=== PATIENT | male | born 1970 | race African-American/Black ===

== ENCOUNTER 2019-02-14 09:18 | Emergency (ER) | payer OTHER ==
[2019-02-14 09:34] VITALS: BP 145/94; PULSE 90; TEMP 97.6; BMI 28.7
--- NOTE | 2019-02-14 09:42 | PDOC ---
History of Present Illness - General Chief Complaint: Nausea Stated Complaint: UPSET STOMACH Time Seen by Provider: 02/14/19 09:20 - History of Present Illness Initial Comments: Mr. Power is a 48 y/o male with PMH significant for HTN presenting today with "feverish feeling" which he describes as feeling "unwell, loss of appetite." He is from [facility] and flew to [facility] before arriving here yesterday. Reports feeling chills last night. Reports nausea without vomiting. Denies diarrhea or blood in the stool. Denies fever. Denies headache/dizziness/chest pain/ shortness of breath. Denies leg swelling or leg pain. Past History - Past Medical History Allergies/Adverse Reactions: Allergies Allergy/AdvReac Type Severity Reaction Status Date / Time No Known Allergies Allergy Verified 02/14/19 09:26 Home Medications: Ambulatory Orders Acetaminophen [Mapap] 500 mg PO ONCE 02/14/19 Amlodipine/Valsartan/Hcthiazid [Exforge Hct 10-160-12.5 mg Tab] 1 each PO DAILY 02/14/19 COPD: No HTN: Yes - Psycho Social/Smoking Cessation Hx Smoking History: Never smoked Hx Alcohol Use: No Drug/Substance Use Hx: No Review of Systems - Review of Systems Comments:: GENERAL/CONSTITUTIONAL: No fever. Reports chills. No weakness. Reports decreased appetite. HEAD, EYES, EARS, NOSE AND THROAT: No change in vision. No change in hearing. No sore throat._ CARDIOVASCULAR: No chest pain or shortness of breath_ RESPIRATORY: Denies cough, hemoptysis_ GASTROINTESTINAL: Reports nausea. No vomiting, diarrhea or constipation._ GENITOURINARY: No dysuria, frequency, or change in urination._ MUSCULOSKELETAL: No joint or muscle swelling or pain. No neck or back pain._ SKIN: No rash_ NEUROLOGIC: No headache, vertigo, loss of consciousness, or change in strength/ sensation._ ENDOCRINE: No increased thirst. No abnormal weight change_ ALLERGIC/IMMUNOLOGIC: No hives or skin allergy._ *Physical Exam - Vital Signs Last Vital Signs Temp Pulse Resp BP Pulse Ox 97.6 F 90 15 145/94 100 02/14/19 09:19 02/14/19 09:19 02/14/19 09:19 02/14/19 09:19 02/14/19 09:19 - Physical Exam Comments: GENERAL: Awake, alert, and oriented to person/place/time, in no acute distress_ HEAD: No signs of trauma, normocephalic, atraumatic _ EYES: PERRLA, EOMI, sclera anicteric, conjunctiva clear_ ENT: Hearing grossly normal, nares patent, oropharynx clear without exudates. No uvular deviation. Moist mucosa_ NECK: Normal ROM, supple, no lymphadenopathy, JVD, or masses_ LUNGS: No distress, speaks in full sentences, clear to auscultation bilaterally _ HEART: Regular rate and rhythm, normal S1 and S2, no murmurs appreciated, peripheral pulses normal and equal bilaterally._ ABDOMEN: Soft, nontender. No guarding, no rebound. No masses_ EXTREMITIES: Normal inspection, Normal range of motion, no edema. No clubbing or cyanosis_ NEUROLOGICAL: Cranial nerves II through XII grossly intact. Normal speech, normal gait, no focal sensorimotor deficits _ SKIN: Warm, Dry, normal turgor, no rashes or lesions noted_ ED Treatment Course - LABORATORY CBC & Chemistry Diagram: 02/14/19 10:15 02/14/19 10:15 - RADIOLOGY Radiology Studies Ordered: Category Date Time Status CHEST PA & LAT [RAD] Stat Radiology 02/14/19 09:35 Ordered Medical Decision Making - Medical Decision Making 02/14/19 09:41 48M with hx of HTN, visiting from [facility] via [facility], presenting with nausea and decreased appetite. No other symptoms. -CBC, CMP, lipase -EKG -CXR -1L NS 02/14/19 10:44 EKG shows NSR, 86 bpm, left axis deviation, no ST elevation/depression, QTc 423. CXR does not appear to show aucte intrathoracic process. 02/14/19 1200 Labs reviewed and wnl. 02/14/19 1300 Patient reassessed. Reports improvement after IV fluids. Plan to d/c home with instructions to hydrate and sleep well. Return if worse. Discharge - Discharge Information Problems reviewed: Yes Clinical Impression/Diagnosis: Nausea Condition: Good Disposition: HOME - Admission No - Follow up/Referral - Patient Discharge Instructions Additional Instructions: Please continue to hydrate well with plenty of water. If you experience any new, worsening, or concerning symptoms, including chest pain, shortness of breath, severe abdominal pain, fever, severe diarrhea, or any other concerns, please return to the emergency department. - Post Discharge Activity
--- NOTE | 2019-02-14 09:51 | PDOC ---
Attending Attestation - Resident Resident Name: Evens Bunch - ED Attending Attestation I have performed the following: I have examined & evaluated the patient, The case was reviewed & discussed with the resident, I agree w/resident's findings & plan, Exceptions are as noted - HPI HPI: 02/14/19 09:49 48-year-old female here today from [facility] where he resides just recently [place] the [place]. States he had a stop over in [facility] ,[place]. still complaining of feeling nauseous and generalized fatigue and feverish. Denies any vomiting no diarrhea no rash no known sick contacts no weight loss no other current complaints. No cough no shortness of breath. 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 [facility] no diarrhea he had one episode of loose stool in the plane but since then has not had any more no rash no body aches no weight loss no night sweats 02/14/19 12:13 - Physicial Exam PE: 02/14/19 12:14 Patient is awake alert no acute distress lungs are clear bilaterally heart is regular without murmurs rubs or gallops abdomen is soft and nontender extremities are warm well perfused there is no peripheral edema no calf tenderness skin is warm and dry no appreciated rash neurologically awake alert and oriented x3 - Medical Decision Making 02/14/19 12:15 Differential includes GI upset from flying, viral gastritis, viral syndrome, other infectious disease less likely as the patient is currently afebrile has not taken any Motrin or Tylenol since the night previous. We will send basic labs CBC CMP including LFTs and lipase due to his mild decrease in appetite. Chest x-ray to rule out any other infectious disease such as pneumonia or other pathology. Chest x-ray is normal EKG is unremarkable basic labs including lipase are normal. Patient feels improved with IV hydration will discharge home he resides with his friend here locally. Plans to return to [facility] at the end of this month told to return to the ED for fever vomiting diarrhea rash or any other concerns
[2019-02-14] MEDS ORDERED: SODIUM CHLORIDE 0.9% 500 ML INFUS.BAG IV ONE (10:24)
[2019-02-14 10:33] LABS: BASO % 0.6 % (0-2.0); EOS % 0.3 % (0-4.5); HEMATOCRIT 43.3 % (35.4-49); HEMOGLOBIN 14.4 GM/dl (11.7-16.9); LYMPH % 8.4 % (8-40); MCH 27.8 pg (25.7-33.7); MCHC 33.2 g/dl (32.0-35.9); MEAN CELL VOLUME 83.5 fl (80-96); MEAN PLT VOLUME 10.6 fl (7.5-11.1); MONO % 4.7 % (3.8-10.2); PLATELET COUNT 167 K/MM3 (134-434); RBC 5.19 M/mm3 (4.00-5.60); RDW 13.1 % (11.9-15.9); WHITE BLOOD COUNT 8.1 K/mm3 (4.0-10.8)
[2019-02-14 10:42] LABS: ALBUMIN 4.3 g/dl (3.4-5.0); BILIRUBIN,TOTAL 0.5 mg/dl (0.2-1); CREATININE 1.1 mg/dl (0.55-1.3); POTASSIUM 3.3 mmol/L (3.5-5.1); TOT PROT 7.7 g/dl (6.4-8.2)
--- NOTE | 2019-02-15 11:02 | EKG ---
Test Reason : Blood Pressure : / mmHG Vent. Rate : 086 BPM Atrial Rate : 086 BPM P-R Int : 146 ms QRS Dur : 086 ms QT Int : 354 ms P-R-T Axes : 068 -47 001 degrees QTc Int : 423 ms NORMAL SINUS RHYTHM BIATRIAL ENLARGEMENT LEFT AXIS DEVIATION PULMONARY DISEASE PATTERN ABNORMAL ECG NO PREVIOUS ECGS AVAILABLE Confirmed by FELISA BENTON, RODNEY ([id number]) on 02/15/2019 11:02:10 AM Referred By: DIPIKA ELLIOTT Confirmed By:RODNEY ROBERTO MD
== END 2019-02-14 11:45 | disposition home or self-care (01) ==
LOC: FER 09:18
PROC: 3E0337Z Introduction of Electrolytic and Water Balance Substance into Peripheral Vein, Percutaneous Approach (ICD-10-PCS; principal; 2019-02-14)
DX: R11.0 Nausea (principal); I10 Essential (primary) hypertension
CPT/HCPCS: 36415; 71046-TC-FY; 80053; 83690; 85025; 93005; 99283-25